=== PATIENT | female | born 1985 | race Caucasian/White ===

== ENCOUNTER 2016-09-06 11:15 | Emergency (ER) | payer OTHER ==
[2016-09-06 11:41] VITALS: BP 108/64; PULSE 74; RESP 20; TEMP 98.1
[2016-09-06] MEDS ORDERED: ORPHENADRINE 30 MG/ML 2 ML VIAL IM STA (13:14)
[2016-09-06] MEDS ORDERED: KETOROLAC 60 MG/2 ML VIAL IM STA (13:14)
--- NOTE | 2016-09-06 13:44 | ED ---
Upper Extremity HPI - General Chief Complaint: Extremity Injury, Upper Stated Complaint: shoulder pain Time Seen by Provider: 09/06/16 13:10 Source: patient, RN notes reviewed Mode of arrival: wheelchair Limitations: physical limitation - History of Present Illness Initial Comments: 31-year-old female presents to the emergency Department chief complaint of right shoulder and left hip pain. Patient was doing partner exercises. Patient states that she did a move and she felt a tear in her right shoulder has since had pain and difficulty with movement of the right shoulder. Patient states she's also had pain to the left hip as well with this. Patient does admit to a history of hours still process. Patient states her pain is moderate this happen last day and has continued. Patient states any movement or touch seems to make it worse. Patient denies any swelling. Patient states resolve head injury or other injury with the incident. Patient states that she stayed constant throbbing type pain. Patient denies any recent fever, chills, shortness of breath, chest pain, back pain, abdominal pain, nausea vomiting, numbness or tingling, dysuria or hematuria, constipation or diarrhea, headaches or visual changes, or any other current symptoms. Place: home - Related Data Home Medications Medication Instructions Recorded Confirmed Milnacipran HCl [Savella] 12.5 mg PO DAILY 06/25/15 06/25/15 Ondansetron Odt [Zofran Odt] 4 mg PO Q8HR PRN 06/25/15 06/25/15 Previous Rx's Medication Instructions Recorded Hydrocodone/Acetaminophen [[place] 1 each PO Q6HR PRN #10 tab 01/05/15 5-325] HYDROcodone/APAP 7.5-325MG [[place] 1 each PO Q8H PRN #6 tab 06/25/15 7.5-325] Promethazine Suppository 25 mg RECTAL QID PRN #10 supp 06/25/15 [Phenergan] Ibuprofen [Motrin] 600 mg PO Q6HR PRN #20 tab 09/06/16 Orphenadrine [Norflex] 100 mg PO Q12H #10 tablet.er 09/06/16 Allergies Allergy/AdvReac Type Severity Reaction Status Date / Time hyoscyamine sulfate Allergy Itching Verified 09/06/16 11:41 [From Levtrevor] Review of Systems ROS Statement: Those systems with pertinent positive or pertinent negative responses have been documented in the HPI. ROS Other: All systems not noted in ROS Statement are negative. Past Medical History Past Medical History: Fibromyalgia Additional Past Medical History / Comment(s): chronic neck pain, migraines, ovarian cyst, osteoprosis,colitis, eating disorder History of Any Multi-Drug Resistant Organisms: None Reported Past Surgical History: Cholecystectomy, Orthopedic Surgery Additional Past Surgical History / Comment(s): d&c, right arm sadie Past Psychological History: Depression Smoking Status: Current every day smoker Past Alcohol Use History: Occasional Past Drug Use History: Marijuana General Exam Limitations: physical limitation General appearance: alert, in no apparent distress Head exam: Present: atraumatic, normocephalic, normal inspection ENT exam: Present: normal exam, mucous membranes moist Neck exam: Present: normal inspection. Absent: tenderness, meningismus, lymphadenopathy Respiratory exam: Present: normal lung sounds bilaterally. Absent: respiratory distress, wheezes, rales, rhonchi, stridor Cardiovascular Exam: Present: regular rate, normal rhythm, normal heart sounds. Absent: systolic murmur, diastolic murmur, rubs, gallop, clicks Right Shoulder Exam: Present: normal inspection, tenderness (Diffuse). Absent: full ROM (Limited in all planes due to pain), swelling, abrasion, laceration, ecchymosis, deformity, crepitus, dislocation, erythema, tenderness over AC joint Upper Arm exam: Present: normal inspection, full ROM. Absent: tenderness, swelling Elbow exam: Present: normal inspection, full ROM. Absent: tenderness, swelling Forearm Wrist exam: Present: normal inspection, full ROM. Absent: tenderness, swelling Neuro motor exam: Present: wrist extension intact, thumb opposition intact, thumb IP flexion intact, thumb adduction intact, fingers 2-5 abduction intact Neurosensory exam: Present: radial nerve intact, ulnar nerve intact, median nerve intact Vascular: Present: normal capillary refill. Absent: vascular compromise Left Hip exam: Present: normal inspection, full ROM, tenderness (Diffuse). Absent: swelling, abrasion, laceration, ecchymosis, deformity, crepitus, dislocation Upper Leg exam: Present: normal inspection, full ROM. Absent: tenderness, swelling Knee exam: Present: normal inspection, full ROM. Absent: tenderness, swelling Lower Leg exam: Present: normal inspection, full ROM. Absent: tenderness, swelling Neurovascular tendon exam: Present: no vascular compromise Back exam: Present: normal inspection, full ROM. Absent: tenderness Neurological exam: Present: alert, oriented X3, CN II-XII intact. Absent: motor sensory deficit Psychiatric exam: Present: normal affect, normal mood Skin exam: Present: warm, dry, intact, normal color. Absent: rash Course Vital Signs 09/06/16 11:37 Temperature 98.1 F Pulse Rate 74 Respiratory 20 Rate Blood Pressure 108/64 O2 Sat by Pulse 100 Oximetry Medical Decision Making - Medical Decision Making 31-year-old female presents for a right shoulder and left hip injury. At this time x-rays are reviewed that did not show any acute fracture. This time we did start the patient on muscle factors for home as well as pain medication. We did discuss follow-up with orthopedic due to the fact this could be a ligament type or tendon or muscular type injury. We discussed return parameters. We discussed ice. The patient stated that she understood and is in agreement with the plan. At this time she will be discharged home. - Radiology Data Radiology results: report reviewed, image reviewed Disposition Clinical Impression: Right shoulder strain, Strain of left hip, Sciatica Disposition: HOME SELF-CARE Condition: Stable Instructions: Rotator Cuff Injury (ED), Sciatica (ED) Additional Instructions: Please use medication as discussed. Please follow up with family doctor if symptoms have not improved over the next two days. Please return to the emergency room if your symptoms increase or worsen or for any other concerns. Prescriptions: Ibuprofen [Motrin] 600 mg PO Q6HR PRN #20 tab PRN Reason: Pain Orphenadrine [Norflex] 100 mg PO Q12H #10 tablet.er Referrals: Chelo Houser MD [Primary Care Provider] - 1-2 days Chaka Rodriguez DO [Doctor of Osteopathic Medicine] - 1-2 days Time of Disposition: 13:51
--- NOTE | 2016-09-06 13:44 | XR ---
EXAMINATION TYPE: XR shoulder complete RT DATE OF EXAM: 09/06/2016 1:32 PM CLINICAL HISTORY: Right shoulder pain after injury yesterday. TECHNIQUE: Three views of the right shoulder are obtained. COMPARISON: Right shoulder x-ray July 17, 2014. FINDINGS: There is no acute fracture/dislocation evident in the right shoulder. There is healed inte rnally fixed fracture of proximal right humeral diaphysis with slight step-off redemonstrated. There is chronic AC joint subluxation. Glenohumeral joint is maintained. Disuse demineralization is suspec nancy and stable. The visualized ribs are intact and unremarkable. IMPRESSION: There is no acute fracture or dislocation in the right shoulder. No significant change f rom prior.
--- NOTE | 2016-09-06 13:47 | XR ---
EXAMINATION TYPE: XR Hip LT and AP Pelvis DATE OF EXAM: 09/06/2016 1:32 PM COMPARISON: CT abdomen pelvis 01 December 2014 HISTORY: Pain and injury TECHNIQUE: A single AP view of the pelvis is obtained. Two views of the left hip are obtained. FINDINGS: There is no acute fracture/dislocation evident in the pelvis. The hip and sacroiliac join ts appear symmetric and unremarkable. The overlying soft tissue appears unremarkable. Two views of left hip show no acute fracture or dislocation. No focal lytic or sclerotic lesion seen in the proximal left femur. The overlying soft tissue is unremarkable. IMPRESSION: There is no acute fracture or dislocation in the pelvis or left hip.
== END 2016-09-06 14:00 | disposition home or self-care (01) ==
LOC: EC 11:15
DX: S46.911A Strain of unspecified muscle, fascia and tendon at shoulder and upper arm level, right arm, initial encounter (principal); S76.012A Strain of muscle, fascia and tendon of left hip, initial encounter; M54.30 Sciatica, unspecified side; X50.9XXA Other and unspecified overexertion or strenuous movements or postures, initial encounter; Y93.B9 Activity, other involving muscle strengthening exercises; M79.7 Fibromyalgia; F32.9 Major depressive disorder, single episode, unspecified; F17.200 Nicotine dependence, unspecified, uncomplicated; Z79.899 Other long term (current) drug therapy; Z88.8 Allergy status to other drugs, medicaments and biological substances
CPT/HCPCS: 99283; 96372 ×2; 73502; 73030; J2360; J1885

== ENCOUNTER 2016-09-08 17:14 | Emergency (ER) | payer OTHER ==
[2016-09-08] MEDS ORDERED: SODIUM CHLORIDE 0.9% 1,000 ML IV STA ×2 (17:39)
[2016-09-08] MEDS ORDERED: ONDANSETRON 4 MG/2 ML VIAL IVP STA (17:39)
[2016-09-08] MEDS ORDERED: PANTOPRAZOLE 40 MG/10 ML VIAL IVP STA (17:39)
[2016-09-08] MEDS ORDERED: RX INFO: IV CONTRAST WAS GIVEN 1 EACH MISC MISCELLANE PRN (17:39)
[2016-09-08] MEDS ORDERED: ACETAMINOPHEN IV (For NPO) 1,000 MG in EMPTY BAG 1 BAG IVPB ONE (17:41)
--- NOTE | 2016-09-08 17:56 | ED ---
Abdominal Pain HPI - General Chief Complaint: Abdominal Pain Stated Complaint: ABD Pain Time Seen by Provider: 09/08/16 17:29 Source: patient, EMS Mode of arrival: EMS Limitations: no limitations - History of Present Illness Initial Comments: This 31-year-old white female presents complaining of some abdominal pain which is described as a cramping. This came on last evening. It is diffuse in nature but somewhat worse on the left side. She also complains of multiple episodes of nausea and vomiting. She thought that she may be constipated last evening and took a laxative. She then started having some rectal bleeding. She further relates that "blood is pouring out of my asshole". She has tried [place] without any significant relief. She is a chronic pain patient for multiple conditions. She states that her fibromyalgia is flared. She complains of pain to her right shoulder as well as her left hip. She apparently was here 2 days ago for these pains. She was going to [facility] this regard but states she is unable to do so as she still was a balance to them. She states that she thinks her ulcerative colitis is flared up as well. She is strongly requesting pain medications. No other complaints or modifying factors. - Related Data Home Medications Medication Instructions Recorded Confirmed ALPRAZolam [Xanax] 0.25 mg PO Q8H PRN 09/08/16 09/08/16 Cholecalciferol [Vitamin D3] 1,000 unit PO DAILY 09/08/16 09/08/16 FLUoxetine HCL [PROzac] 10 mg PO HS 09/08/16 09/08/16 Hydrocodone/Acetaminophen [[place] 1 tab PO Q6H PRN 09/08/16 09/08/16 10-325] Lidocaine 5% Patch [Lidoderm] 1 patch TRANSDERM DAILY 09/08/16 09/08/16 Multivitamin For Bone Health 1 tab PO DAILY 09/08/16 09/08/16 Ondansetron [Zofran ODT] 8 mg PO Q8H PRN 09/08/16 09/08/16 Allergies Allergy/AdvReac Type Severity Reaction Status Date / Time hyoscyamine sulfate Allergy Itching Verified 09/08/16 18:01 [From Levsin] Review of Systems ROS Statement: Those systems with pertinent positive or pertinent negative responses have been documented in the HPI. ROS Other: All systems not noted in ROS Statement are negative. Past Medical History Past Medical History: Fibromyalgia Additional Past Medical History / Comment(s): chronic neck pain, migraines, ovarian cyst, osteoprosis,colitis, eating disorder History of Any Multi-Drug Resistant Organisms: None Reported Past Surgical History: Cholecystectomy, Orthopedic Surgery Additional Past Surgical History / Comment(s): d&c, right arm sadie Past Psychological History: Depression, Panic Disorder Smoking Status: Current every day smoker Past Alcohol Use History: Occasional Past Drug Use History: Marijuana General Exam - General Exam Comments Initial Comments: GENERAL: The patient appears well-hydrated but also appears malnourished. VITAL SIGNS: Heart rate, blood pressure, respiratory rate reviewed as recorded in nurse's notes. EYES: Pupils are round and reactive. Extraocular movements are intact. No conjunctival / lid redness or swelling. ENT: No external evidence of injury, swelling, or ecchymosis. Airway is patent. Throat is clear. NECK: Nontender. No swelling or evidence of injury. No subcutaneous emphysema. Trachea is midline. No thyroid mass. HEART: Regular rate and rhythm. Good peripheral pulses. LUNGS/CHEST: Breath sounds clear and equal bilaterally. No rales, rhonchi, or wheezes. No ecchymosis, subcutaneous emphysema, or tenderness. ABDOMEN: There is some diffuse abdominal tenderness which is much less severe to nonexistent when distracted. No palpable masses or organomegaly. No peritoneal signs. No abdominal wall swelling or ecchymosis. Rectal exam: There is no gross blood identified. There is no evidence of hemorrhoids. There is some mild tenderness upon digital rectal insertion. EXTREMITIES: No extremity tenderness. Normal muscle tone and function. No thoracolumbar tenderness. NEUROLOGIC: Sensation is grossly intact. Cranial nerve exam reveals face is symmetrical, tongue is midline, speech is clear. SKIN: No abrasions or ecchymosis is noted. No induration or masses noted. PSYCHIATRIC: Alert and oriented. Appears somewhat anxious. Limitations: no limitations Course Vital Signs 09/08/16 17:33 Temperature 97.2 F L Pulse Rate 56 L Respiratory 14 Rate Blood Pressure 110/59 O2 Sat by Pulse 100 Oximetry Medical Decision Making - Medical Decision Making The patient was seen and examined. All diagnostics are reviewed. Old records are reviewed. An IV is started and she is hydrated. She received some Ofirmev as well as some Protonix and Zofran intravenously. She is resting quietly and in no distress on recheck. The computed tomography scan came back showing significant fecal stasis. There is also some retained urine noted. She urinates shortly after getting back from the computed tomography scan. There is no other acute processes identified. Her hemoglobin is quite stable. It blood cell count is normal. The Hemoccult is also negative. Overall, the exact cause of her symptoms are not definitively determined. It is certainly felt as though she has significant constipation as per the computed tomography scan. She does request additional pain medications. She is instructed that narcotics should be avoided as this may be causing constipation issues. It is felt as though Toradol or other NSAIDs should be avoided due to this possible bleeding episode. While she does state that she had rectal bleeding it is odd that her Hemoccult is negative. The possibility of alternative motives/ narcotic seeking is certainly possible. She is given a bottle of magnesium citrate to take when she gets home. It is felt as though she is stable for discharge and leaves in no distress. - Lab Data Result diagrams: 09/08/16 17:45 09/08/16 17:45 Lab Results 09/08/16 09/08/16 09/08/16 Range/Units 17:45 17:45 17:45 WBC 7.5 (3.8-10.6) k/uL RBC 3.81 (3.80-5.40) m/uL Hgb 12.0 (11.4-16.0) gm/dL Hct 36.3 (34.0-46.0) % MCV 95.2 (80.0-100.0) fL MCH 31.4 (25.0-35.0) pg MCHC 33.0 (31.0-37.0) g/dL RDW 13.2 (11.5-15.5) % Plt Count 359 (150-450) k/uL Neutrophils % 64 % Lymphocytes % 26 % Monocytes % 6 % Eosinophils % 3 % Basophils % 0 % Neutrophils # 4.8 (1.3-7.7) k/uL Lymphocytes # 2.0 (1.0-4.8) k/uL Monocytes # 0.4 (0-1.0) k/uL Eosinophils # 0.2 (0-0.7) k/uL Basophils # 0.0 (0-0.2) k/uL PT 11.5 (9.0-12.0) sec INR 1.2 (<1.1) APTT 25.8 (22.0-30.0) sec Sodium 142 (137-145) mmol/L Potassium 3.6 (3.5-5.1) mmol/L Chloride 108 H (98-107) mmol/L Carbon Dioxide 24 (22-30) mmol/L Anion Gap 10 mmol/L BUN 6 L (7-17) mg/dL Creatinine 0.54 (0.52-1.04) mg/dL Est GFR (MDRD) Af Amer >60 (>60 ml/min/1.73 sqM) Est GFR (MDRD) Non-Af >60 (>60 ml/min/1.73 sqM) Glucose 98 (74-99) mg/dL Calcium 9.2 (8.4-10.2) mg/dL Total Bilirubin 0.6 (0.2-1.3) mg/dL AST 23 (14-36) U/L ALT 33 (9-52) U/L Alkaline Phosphatase 75 (38-126) U/L Total Protein 7.1 (6.3-8.2) g/dL Albumin 4.2 (3.5-5.0) g/dL Amylase 68 (30-110) U/L Lipase 56 (23-300) U/L HCG, Qual Not Detected Stool Occult Blood (Negative) 09/08/16 Range/Units 17:45 WBC (3.8-10.6) k/uL RBC (3.80-5.40) m/uL Hgb (11.4-16.0) gm/dL Hct (34.0-46.0) % MCV (80.0-100.0) fL MCH (25.0-35.0) pg MCHC (31.0-37.0) g/dL RDW (11.5-15.5) % Plt Count (150-450) k/uL Neutrophils % % Lymphocytes % % Monocytes % % Eosinophils % % Basophils % % Neutrophils # (1.3-7.7) k/uL Lymphocytes # (1.0-4.8) k/uL Monocytes # (0-1.0) k/uL Eosinophils # (0-0.7) k/uL Basophils # (0-0.2) k/uL PT (9.0-12.0) sec INR (<1.1) APTT (22.0-30.0) sec Sodium (137-145) mmol/L Potassium (3.5-5.1) mmol/L Chloride (98-107) mmol/L Carbon Dioxide (22-30) mmol/L Anion Gap mmol/L BUN (7-17) mg/dL Creatinine (0.52-1.04) mg/dL Est GFR (MDRD) Af Amer (>60 ml/min/1.73 sqM) Est GFR (MDRD) Non-Af (>60 ml/min/1.73 sqM) Glucose (74-99) mg/dL Calcium (8.4-10.2) mg/dL Total Bilirubin (0.2-1.3) mg/dL AST (14-36) U/L ALT (9-52) U/L Alkaline Phosphatase (38-126) U/L Total Protein (6.3-8.2) g/dL Albumin (3.5-5.0) g/dL Amylase (30-110) U/L Lipase (23-300) U/L HCG, Qual Stool Occult Blood Negative (Negative) Disposition Clinical Impression: Abdominal pain, Constipation, Fibromyalgia, Rectal bleed Disposition: HOME SELF-CARE Condition: Good Instructions: Abdominal Pain (ED), Rectal Bleeding (ED), Constipation (ED) Additional Instructions: Please use MiraLAX daily to help with her constipation. Please avoid further narcotics as this likely is causing her constipation. Referrals: Chelo Houser MD [Primary Care Provider] - 1-2 days Time of Disposition: 20:25
[2016-09-08 18:03] LABS: Basophils % (A) 0 %; CH 31.9; CHCM 33.6; Eosinophils # (A) 0.2 k/uL (0-0.7); Eosinophils % (A) 3 %; HCT 36.3 % (34.0-46.0); HDW 2.22; Luc # (Auto) 0.11; Luc % (Auto) 1; Lymphocytes % (A) 26 %; MCH 31.4 pg (25.0-35.0); MCV 95.2 fL (80.0-100.0); Mean Platelet Volume 7.3; Monocytes # (A) 0.4 k/uL (0-1.0); Monocytes % (A) 6 %; Neutrophils # (A) 4.8 k/uL (1.3-7.7); Neutrophils % (A) 64 %; RBC 3.81 m/uL (3.80-5.40); RDW 13.2 % (11.5-15.5); WBC 7.5 k/uL (3.8-10.6); WBC (Perox) 7.96
[2016-09-08 18:12] LABS: INR 1.2 (<1.1); Partial Thromboplastin Time 25.8 sec (22.0-30.0); Prothrombin Time 11.5 sec (9.0-12.0)
[2016-09-08 18:16] LABS: ALT 33 U/L (9-52); AST 23 U/L (14-36); Alkaline Phosphatase 75 U/L (38-126); Amylase 68 U/L (30-110); Anion Gap 10 mmol/L; Blood Urea Nitrogen 6 mg/dL (7-17); Calcium 9.2 mg/dL (8.4-10.2); Carbon Dioxide 24 mmol/L (22-30); Chloride 108 mmol/L (98-107); Glucose 98 mg/dL (74-99); Non-African American GFR(MDRD) >60 (>60 ml/min/1.73 sqM); Potassium 3.6 mmol/L (3.5-5.1); Sodium 142 mmol/L (137-145); Total Bilirubin 0.6 mg/dL (0.2-1.3); Total Protein 7.1 g/dL (6.3-8.2)
[2016-09-08 18:30] LABS: HCG,Qualitative Serum Not Detected
--- NOTE | 2016-09-08 19:20 | CT ---
EXAMINATION TYPE: CT abdomen pelvis w con DATE OF EXAM: 09/08/2016 6:56 PM COMPARISON: Prior CT abdomen pelvis November 2014 HISTORY: Pt states of severe abdominal pain with vomiting and blood in stool. CT DLP: 327.9 mGycm Automated exposure control for dose reduction was used. TECHNIQUE: Helical acquisition of images from the lung bases through the pelvis have been completed. CONTRAST: Performed without Oral Contrast and with IV Contrast, patient injected with 100 mL of Omnipaque 300. FINDINGS: LUNG BASES: No significant abnormality is appreciated. AORTA: No significant abnormality is appreciated. LIVER/GB: Patient is status post cholecystectomy. Liver shows low attenuation but no mass. There may be underlying fatty infiltration, hepatocellular disease. PANCREAS: No significant abnormality is seen. SPLEEN: No significant abnormality is seen. ADRENALS: No significant abnormality is seen. KIDNEYS: No significant abnormality is seen. REPRODUCTIVE ORGANS: No significant abnormality is seen BOWEL: There is large amount of fecal debris in the rectosigmoid colon, correlate for possible fecal impaction. FREE AIR: No Free Air visible ASCITES: None visible. PELVIC ADENOPATHY: None visualized. RETROPERITONEAL ADENOPATHY: No Retroperitoneal Adenopathy visible. URINARY BLADDER: Large amount of retained urine within the bladder. OSSEOUS STRUCTURES: There is a spinal curvature. IMPRESSION: CORRELATE TO EXCLUDE FECAL STASIS. LARGE AMOUNT OF RETAINED URINE WITHIN THE URINARY BLADDER, CORRELA TE TO EXCLUDE URINARY RETENTION.
[2016-09-08] MEDS ORDERED: MAGNESIUM CITRATE 296 ML BOTTLE PO ONE (20:20)
[2016-09-08 20:43] VITALS: BP 99/53; PULSE 88; RESP 16; TEMP 97.9
== END 2016-09-08 20:43 | disposition home or self-care (01) ==
LOC: EC 17:14
DX: K59.00 Constipation, unspecified (principal); M79.7 Fibromyalgia; K62.5 Hemorrhage of anus and rectum; E46 Unspecified protein-calorie malnutrition; M81.0 Age-related osteoporosis without current pathological fracture; F32.9 Major depressive disorder, single episode, unspecified; F41.0 Panic disorder [episodic paroxysmal anxiety]; F17.200 Nicotine dependence, unspecified, uncomplicated; Z68.1 Body mass index [BMI] 19.9 or less, adult; Z79.899 Other long term (current) drug therapy
CPT/HCPCS: 99285; 96374; 96375; 96361 ×2; 36415; 80053; 82150; 83690; 85025; 85610; 85730; 82272; 84703; 74177; J2405; Q9967; J0131; C9113

== ENCOUNTER → 2016-10-21 | Outpatient (CLI) | payer OTHER ==
--- NOTE | 2016-10-21 15:14 | MR ---
EXAMINATION TYPE: MR shoulder RT wo con DATE OF EXAM: 10/21/2016 2:27 PM COMPARISON: Right shoulder x-ray September 06, 2016. HISTORY: Adhesive capsulitis rt shoulder, Pain TECHNIQUE: Multiplanar, multisequence imaging of the right shoulder is performed without contrast. FINDINGS: Exam is noted suboptimal due to extensive artifact from fixating rods related to remote pro ximal humeral fracture. Rotator Cuff: Distal rotator cuff is suboptimally assessed. Rotator cuff tendons up to the acromiocla vicular joint are unremarkable. Rotator cuff muscle bulk is preserved. Subscapularis tendon is intact . Acromioclavicular Joint: Artifact at level of acromion makes evaluation suboptimal. There appears to be elevation of distal clavicle inferior margin relative to inferior margin of the acromion suggestin g chronic subluxation or separation. Glenohumeral Joint: No significant spurring or joint effusion is seen. Artifact degradation is noted. Labrum: Superior labrum likely intact though artifact degradation is noted. Biceps Tendon: The long head of biceps is in normal location within bicipital groove. Bicipital groov e is deviated laterally may be product of external rotation or prior trauma. Bone marrow signal: Artifact degradation proximal humerus is seen, other structures unremarkable. Other: There is suboptimal evaluation of the inferior glenohumeral ligament, axillary recess, and rot ator cuff interval due to artifact. IMPRESSION: Suboptimal study due to artifact degradation to assess MRI findings suggesting adhesive c apsulitis.
== END | disposition home or self-care (01) ==
LOC: RADMRIMAIN 13:38
PROVIDERS: ATTEND Family Medicine
DX: M75.01 Adhesive capsulitis of right shoulder (principal)

== ENCOUNTER → 2017-05-13 | Outpatient (CLI) | payer OTHER ==
--- NOTE | 2017-05-16 07:27 | BD ---
EXAMINATION TYPE: MG DEXA axial skeleton. DATE OF EXAM: 05/13/2017 COMPARISON: NONE CLINICAL HISTORY: 31-year-old female osteoporosis : no taking control Height: 63.5 Weight: 125.7 FRAX RISK QUESTIONS: Alcohol (3 or more units per day): no Family History (Parent hip fracture): no Glucocorticoids (More than 3mos): no (Ex: prednisone, prednisolone, methylprednisolone, dexamethasone, and hydrocortisone). History of Fracture in Adulthood: yes Secondary Osteoporosis: 1. Type 1 Diabetes: no 2. Hyperthyroidism: no 3. Menopause before 45: n/a pt is only 31 4. Malnutrition: yes 5. Chronic liver disease: no Rheumatoid Arthritis: no Current Tobacco Use: yes RISK FACTORS HISTORY OF: Hip Fracture (Right/Left): no Spine Fracture: no History of Wrist Fracture: left wrist When: 2012 Surgery to Spine/Hip(right/left)/Wrist (right/left): no Family History of Osteoporosis: yes Active: yes Diet low in dairy products/other sources of calcium: yes If Premenopausal, do you have irregular periods: no Lost more than 2 inches in height since high school: no Frequent falls: no Poor Health: yes Hyperparathyroidism: no Adrenal Insufficiency: no MEDICATIONS: Zofran, ibuprofen, Prilosec, viosterol, xanax, norco, Zyprexa Additional History: EXAM MEASUREMENTS: Bone mineral densitometry was performed using the [employer] System. Bone mineral density as measured about the Lumbar spine is: ----- L1-L4(G/cm2): 0.917 T Score Values are as follows: ----- L2: -2.4 ----- L3: -1.9 ----- L4: -2.6 ----- L1-L4: -2.2 Bone mineral density baseline here Bone mineral density about the R hip (g/cm2): 0.822 Bone mineral density about the L hip (g/cm2): 0.780 T Score values are as follows: -----R Neck: -1.6 -----L Neck: -1.9 -----R Total: -1.5 -----L Total: -1.8 Bone mineral density baseline here IMPRESSION: Premenopausal female with decreased bone mineral density; average Z score value in the lumbar spine l ess than -2.0. NOTE: T-SCORE=SD OF THE YOUNG ADULT MEAN.
== END | disposition home or self-care (01) ==
LOC: RADBDWWP 12:28
PROVIDERS: ATTEND Family Medicine
DX: M85.88 Other specified disorders of bone density and structure, other site (principal)
CPT/HCPCS: 77080

== ENCOUNTER → 2017-09-22 | Outpatient (CLI) | payer OTHER ==
--- NOTE | 2017-09-22 10:26 | US ---
EXAMINATION TYPE: US abdomen complete DATE OF EXAM: 09/22/2017 COMPARISON: CT CLINICAL HISTORY: R74.8 Elevated liver Enzymes. EXAM MEASUREMENTS: Liver Length: 14.7 cm Gallbladder Wall: Surgically absent cm CBD: 0.4 cm Spleen: 6.0 cm Right Kidney: 9.8 X 4.1 X 4.4 cm Left Kidney: 9.4 x 4.0 x 4.2 cm Pancreas: wnl Liver: fatty liver Gallbladder: Surgically absent Evidence for sonographic Jaeger's sign: No CBD: wnl Spleen: wnl , somewhat limited due to overlying ribs. Right Kidney: No hydronephrosis or masses seen Left Kidney: No hydronephrosis or masses seen Upper IVC: wnl Abd Aorta: wnl IMPRESSION: 1. Visualized abdomen ultrasound is unremarkable.
== END | disposition home or self-care (01) ==
LOC: RADUSWWP 08:56
PROVIDERS: ATTEND Family Medicine
DX: R74.8 Abnormal levels of other serum enzymes (principal)
CPT/HCPCS: 76700

== ENCOUNTER 2017-12-28 11:12 | Emergency (ER) | payer OTHER ==
[2017-12-28 11:54] VITALS: TEMP 98.1
[2017-12-28] MEDS ORDERED: ONDANSETRON 4 MG/2 ML VIAL IVP STA ×2 (12:18→14:44)
[2017-12-28] MEDS ORDERED: SODIUM CHLORIDE 0.9% 1,000 ML IV STA (12:18)
[2017-12-28] MEDS ORDERED: SODIUM CHLORIDE 0.9% 2,000 ML IV STA (12:18)
[2017-12-28] MEDS ORDERED: PANTOPRAZOLE 40 MG/10 ML VIAL IVP STA (12:20)
--- NOTE | 2017-12-28 12:23 | ED ---
Nausea/Vomiting/Diarrhea HPI - General Chief complaint: Nausea/Vomiting/Diarrhea Stated complaint: Vomiting Blood Time Seen by Provider: 12/28/17 12:11 Source: patient, RN notes reviewed Mode of arrival: ambulatory Limitations: no limitations - History of Present Illness Initial comments: This a 32-year-old female presents emergency Department chief complaint of nausea vomiting. Patient states she's been vomiting over the last 9 days. Patient states this started after being started on new medication. She states she was started on Carafate by Dr. Mcgarry. Patient states that she's had problems with gastritis and hematemesis in the past. Patient states that she's been vomiting mostly bile glass 8 days but today she had several small amount of bright red blood. Patient states she has some epigastric discomfort. Denies chest pain or shortness breath. She states that she has had no recent bowel movement denies any diarrhea, dysuria or hematuria. Patient had prior cholecystectomy and EGD in the past. Patient states her symptoms are consistent with her gastritis in the past. - Related Data Home Medications Medication Instructions Recorded Confirmed Hydrocodone/Acetaminophen [[place] 1 tab PO Q6H PRN 09/08/16 12/28/17 10-325] ALPRAZolam [Xanax] 0.5 mg PO DAILY PRN 12/28/17 12/28/17 Desvenlafaxine [Pristiq ER] 100 mg PO HS 12/28/17 12/28/17 Ibuprofen [Motrin] 800 mg PO TID PRN 12/28/17 12/28/17 Omeprazole [PriLOSEC] 20 mg PO BID 12/28/17 12/28/17 Pantoprazole Sodium 40 mg PO DAILY 12/28/17 12/28/17 cloNIDine HCL [Catapres] 0.1 - 0.2 mg PO DAILY PRN 12/28/17 12/28/17 Previous Rx's Medication Instructions Recorded Ciprofloxacin HCl [Cipro] 500 mg PO Q12HR #10 tablet 12/28/17 Ondansetron Odt [Zofran Odt] 4 mg PO Q8HR PRN #14 tab 12/28/17 Allergies Allergy/AdvReac Type Severity Reaction Status Date / Time hyoscyamine sulfate AdvReac Itching Verified 12/28/17 12:31 [From Levsin] latex AdvReac Itching Verified 12/28/17 12:31 Review of Systems ROS Statement: Those systems with pertinent positive or pertinent negative responses have been documented in the HPI. ROS Other: All systems not noted in ROS Statement are negative. Past Medical History Past Medical History: Fibromyalgia Additional Past Medical History / Comment(s): chronic neck pain, migraines, ovarian cyst, osteoprosis,colitis, eating disorder, endometriosis History of Any Multi-Drug Resistant Organisms: None Reported Past Surgical History: Cholecystectomy, Orthopedic Surgery Additional Past Surgical History / Comment(s): d&c, right arm sadie Past Psychological History: Depression, Panic Disorder Smoking Status: Current every day smoker Past Alcohol Use History: Occasional Past Drug Use History: Marijuana General Exam Limitations: no limitations General appearance: alert, in no apparent distress Head exam: Present: atraumatic, normocephalic, normal inspection Eye exam: Present: normal appearance, PERRL, EOMI. Absent: scleral icterus, conjunctival injection, periorbital swelling ENT exam: Present: normal exam, normal oropharynx, mucous membranes moist Neck exam: Present: normal inspection, full ROM. Absent: tenderness, meningismus, lymphadenopathy Respiratory exam: Present: normal lung sounds bilaterally. Absent: respiratory distress, wheezes, rales, rhonchi, stridor Cardiovascular Exam: Present: regular rate, normal rhythm, normal heart sounds. Absent: systolic murmur, diastolic murmur, rubs, gallop, clicks GI/Abdominal exam: Present: soft, tenderness (Epigastric discomfort moderate), normal bowel sounds. Absent: distended, guarding, rebound, rigid Back exam: Absent: CVA tenderness (R), CVA tenderness (L) Skin exam: Present: warm, dry, intact, normal color. Absent: rash Course Vital Signs 12/28/17 12/28/17 11:51 12:22 Temperature 98.1 F Pulse Rate 77 75 Respiratory 18 19 Rate Blood Pressure 101/63 92/53 O2 Sat by Pulse 100 100 Oximetry Medical Decision Making - Medical Decision Making 32-year-old female presented to the ER for nausea vomiting reported for last 9 days. She did have some bright red blood today. Patient has known gastritis and has had issues like this in the past. Patient was hydrated with several liters of fluids. Patient lab work does reveal urinary tract infection otherwise within normal limits. Patient had 1+ ketones dehydration. - Lab Data Result diagrams: 12/28/17 12:48 05/02/18 12:48 Lab Results 12/28/17 12/28/17 12/28/17 Range/Units 12:48 12:48 12:48 WBC 7.8 (3.8-10.6) k/uL RBC 3.92 (3.80-5.40) m/uL Hgb 12.2 (11.4-16.0) gm/dL Hct 36.3 (34.0-46.0) % MCV 92.7 (80.0-100.0) fL MCH 31.1 (25.0-35.0) pg MCHC 33.6 (31.0-37.0) g/dL RDW 13.5 (11.5-15.5) % Plt Count 354 (150-450) k/uL Neutrophils % 58 % Lymphocytes % 36 % Monocytes % 3 % Eosinophils % 2 % Basophils % 0 % Neutrophils # 4.5 (1.3-7.7) k/uL Lymphocytes # 2.8 (1.0-4.8) k/uL Monocytes # 0.2 (0-1.0) k/uL Eosinophils # 0.2 (0-0.7) k/uL Basophils # 0.0 (0-0.2) k/uL Sodium 147 H (137-145) mmol/L Potassium 4.8 (3.5-5.1) mmol/L Chloride 103 (98-107) mmol/L Carbon Dioxide 28 (22-30) mmol/L Anion Gap 16 mmol/L BUN 17 (7-17) mg/dL Creatinine 0.60 (0.52-1.04) mg/dL Est GFR (CKD-EPI)AfAm >90 (>60 ml/min/1.73 sqM) Est GFR (CKD-EPI)NonAf >90 (>60 ml/min/1.73 sqM) Glucose 79 (74-99) mg/dL Calcium 9.7 (8.4-10.2) mg/dL Total Bilirubin 0.4 (0.2-1.3) mg/dL AST 50 H (14-36) U/L ALT 72 H (9-52) U/L Alkaline Phosphatase 79 (38-126) U/L Total Protein 7.8 (6.3-8.2) g/dL Albumin 4.7 (3.5-5.0) g/dL Amylase 104 (30-110) U/L Lipase 110 (23-300) U/L Urine Color Dark Yellow Urine Appearance Cloudy H (Clear) Urine pH 6.5 (5.0-8.0) Ur Specific [place] 1.028 (1.001-1.035) Urine Protein 2+ H (Negative) Urine Glucose (UA) Negative (Negative) Urine Ketones 1+ H (Negative) Urine Blood Negative (Negative) Urine Nitrite Negative (Negative) Urine Bilirubin Negative (Negative) Urine Urobilinogen 3.0 (<2.0) mg/dL Ur Leukocyte Esterase Large H (Negative) Urine WBC 166 H (0-5) /hpf Ur Squamous Epith Cells 23 H (0-4) /hpf Urine Bacteria Occasional H (None) /hpf Urine Mucus Many H (None) /hpf Urine HCG, Qual (Not Detectd) 12/28/17 Range/Units 12:48 WBC (3.8-10.6) k/uL RBC (3.80-5.40) m/uL Hgb (11.4-16.0) gm/dL Hct (34.0-46.0) % MCV (80.0-100.0) fL MCH (25.0-35.0) pg MCHC (31.0-37.0) g/dL RDW (11.5-15.5) % Plt Count (150-450) k/uL Neutrophils % % Lymphocytes % % Monocytes % % Eosinophils % % Basophils % % Neutrophils # (1.3-7.7) k/uL Lymphocytes # (1.0-4.8) k/uL Monocytes # (0-1.0) k/uL Eosinophils # (0-0.7) k/uL Basophils # (0-0.2) k/uL Sodium (137-145) mmol/L Potassium (3.5-5.1) mmol/L Chloride (98-107) mmol/L Carbon Dioxide (22-30) mmol/L Anion Gap mmol/L BUN (7-17) mg/dL Creatinine (0.52-1.04) mg/dL Est GFR (CKD-EPI)AfAm (>60 ml/min/1.73 sqM) Est GFR (CKD-EPI)NonAf (>60 ml/min/1.73 sqM) Glucose (74-99) mg/dL Calcium (8.4-10.2) mg/dL Total Bilirubin (0.2-1.3) mg/dL AST (14-36) U/L ALT (9-52) U/L Alkaline Phosphatase (38-126) U/L Total Protein (6.3-8.2) g/dL Albumin (3.5-5.0) g/dL Amylase (30-110) U/L Lipase (23-300) U/L Urine Color Urine Appearance (Clear) Urine pH (5.0-8.0) Ur Specific [place] (1.001-1.035) Urine Protein (Negative) Urine Glucose (UA) (Negative) Urine Ketones (Negative) Urine Blood (Negative) Urine Nitrite (Negative) Urine Bilirubin (Negative) Urine Urobilinogen (<2.0) mg/dL Ur Leukocyte Esterase (Negative) Urine WBC (0-5) /hpf Ur Squamous Epith Cells (0-4) /hpf Urine Bacteria (None) /hpf Urine Mucus (None) /hpf Urine HCG, Qual Not Detected (Not Detectd) Disposition Clinical Impression: Nausea & vomiting, Gastritis, UTI (urinary tract infection) Disposition: HOME SELF-CARE Condition: Stable Instructions: Acute Nausea and Vomiting (ED) Additional Instructions: Please return to the Emergency Department if symptoms worsen or any other concerns. Prescriptions: Ciprofloxacin HCl [Cipro] 500 mg PO Q12HR #10 tablet Ondansetron Odt [Zofran Odt] 4 mg PO Q8HR PRN #14 tab PRN Reason: Nausea Is patient prescribed a controlled substance at d/c from ED?: No Referrals: Chelo Houser MD [Primary Care Provider] - 1-2 days Susan Stroud MD [STAFF PHYSICIAN] - 1-2 days Time of Disposition: 14:52
[2017-12-28 13:08] LABS: Basophils % (A) 0 %; Eosinophils # (A) 0.2 k/uL (0-0.7); Eosinophils % (A) 2 %; HCT 36.3 % (34.0-46.0); HGB 12.2 gm/dL (11.4-16.0); Lymphocytes # (A) 2.8 k/uL (1.0-4.8); Lymphocytes % (A) 36 %; MCH 31.1 pg (25.0-35.0); MCHC 33.6 g/dL (31.0-37.0); MCV 92.7 fL (80.0-100.0); Mean Platelet Volume 7.4; Monocytes # (A) 0.2 k/uL (0-1.0); Monocytes % (A) 3 %; Neutrophils # (A) 4.5 k/uL (1.3-7.7); Neutrophils % (A) 58 %; Platelet Count 354 k/uL (150-450); RBC 3.92 m/uL (3.80-5.40); RDW 13.5 % (11.5-15.5); WBC 7.8 k/uL (3.8-10.6)
--- NOTE | 2017-12-28 13:08 | XR ---
EXAMINATION TYPE: XR KUB DATE OF EXAM: 12/28/2017 COMPARISON: NONE HISTORY: Pain TECHNIQUE: Single supine KUB image of the abdomen is obtained FINDINGS: Small bowel demonstrates no evidence for dilatation or air fluid levels. Gas and fecal material is seen in non-distended colon. No convincing evidence for pneumoperitoneum. No unusual calcifications. The lung bases are clear. The osseous structures are intact. IMPRESSION: 1. Overall nonobstructive bowel gas pattern.
[2017-12-28 13:15] LABS: ALT 72 U/L (9-52); AST 50 U/L (14-36); Albumin 4.7 g/dL (3.5-5.0); Alkaline Phosphatase 79 U/L (38-126); Amylase 104 U/L (30-110); Anion Gap 16 mmol/L; Blood Urea Nitrogen 17 mg/dL (7-17); Calcium 9.7 mg/dL (8.4-10.2); Carbon Dioxide 28 mmol/L (22-30); Chloride 103 mmol/L (98-107); Glucose 79 mg/dL (74-99); Lipase 110 U/L (23-300); Potassium 4.8 mmol/L (3.5-5.1); Sodium 147 mmol/L (137-145); Total Bilirubin 0.4 mg/dL (0.2-1.3); Total Protein 7.8 g/dL (6.3-8.2)
[2017-12-28 13:21] LABS: Appearance,Urine Cloudy (Clear); Bacteria,Urine Occasional /hpf; Bilirubin,Urine Negative (Negative); Blood,Urine Negative (Negative); Color,Urine Dark Yellow; Glucose,Urine (UA) Negative (Negative); Ketones,Urine 1+ (Negative); Leukocyte Esterase,Urine Large (Negative); Mucus,Urine Many /hpf; Nitrite,Urine Negative (Negative); PH, Urine 6.5 (5.0-8.0); Protein,Urine 2+ (Negative); Specific Gravity,Urine 1.028 (1.001-1.035); Squamous Epithelial Cell,Urine 23 /hpf (0-4); WBC,Urine 166 /hpf (0-5)
[2017-12-28] MEDS ORDERED: MORPHINE SULFATE 4 MG/ML SYRINGE IVP STA (14:44)
[2017-12-28] MEDS ORDERED: cefTRIAXone IN SWFI 1,000 MG/10 ML SYRINGE IVP STA (14:49)
[2017-12-28 14:55] VITALS: BP 94/55; PULSE 97; RESP 16
== END 2017-12-28 15:33 | disposition home or self-care (01) ==
LOC: EC 11:12
DX: K29.70 Gastritis, unspecified, without bleeding (principal); N39.0 Urinary tract infection, site not specified; F32.9 Major depressive disorder, single episode, unspecified; F41.0 Panic disorder [episodic paroxysmal anxiety]; F17.200 Nicotine dependence, unspecified, uncomplicated; Z79.899 Other long term (current) drug therapy; Z91.040 Latex allergy status; Z88.8 Allergy status to other drugs, medicaments and biological substances; Z90.49 Acquired absence of other specified parts of digestive tract
CPT/HCPCS: 36415; 80053; 82150; 83690; 85025; 81001; 81025; 74018; 99284; 96374; 96375 ×3; 96376; 96361 ×3; J2270; J2405; J0696; C9113

== ENCOUNTER 2017-12-29 05:08 | Inpatient (IN) | payer OTHER ==
[2017-12-29] MEDS ORDERED: SODIUM CHLORIDE 0.9% 500 ML IV STA (05:35)
[2017-12-29] MEDS ORDERED: PANTOPRAZOLE 40 MG/10 ML VIAL IVP STA (05:35)
[2017-12-29] MEDS ORDERED: METOCLOPRAMIDE 5 MG/ML 2 ML VIAL IVP STA (05:35)
[2017-12-29] MEDS ORDERED: SODIUM CHLORIDE 0.9% 1,000 ML IV STA (05:35)
--- NOTE | 2017-12-29 05:38 | ED ---
General Adult HPI - General Chief complaint: GI Bleed Stated complaint: Vomiting blood Time Seen by Provider: 12/29/17 05:24 Source: patient, RN notes reviewed Mode of arrival: wheelchair Limitations: no limitations - History of Present Illness Initial comments: Patient is a pleasant 32-year-old female presenting to the emergency Department with complaints of vomiting. Symptoms have been occurring for the past 9 days. Patient has been vomiting some blood over the past couple of days. Patient was seen in the emergency department yesterday and advised to return if symptoms worsen. Patient feels symptoms are continued or worsened. Patient does have a history of similar symptoms just once previously less than a year ago when she was diagnosed with gastroenteritis. Otherwise is not a chronic problem for the patient. Patient still feels nauseated and fatigued. Does have epigastric discomfort. - Related Data Home Medications Medication Instructions Recorded Confirmed Hydrocodone/Acetaminophen [[place] 1 tab PO Q6H PRN 09/08/16 12/28/17 10-325] ALPRAZolam [Xanax] 0.5 mg PO DAILY PRN 12/28/17 12/28/17 Desvenlafaxine [Pristiq ER] 100 mg PO HS 12/28/17 12/28/17 Ibuprofen [Motrin] 800 mg PO TID PRN 12/28/17 12/28/17 Omeprazole [PriLOSEC] 20 mg PO BID 12/28/17 12/28/17 Pantoprazole Sodium 40 mg PO DAILY 12/28/17 12/28/17 cloNIDine HCL [Catapres] 0.1 - 0.2 mg PO DAILY PRN 12/28/17 12/28/17 Previous Rx's Medication Instructions Recorded Ciprofloxacin HCl [Cipro] 500 mg PO Q12HR #10 tablet 12/28/17 Ondansetron Odt [Zofran Odt] 4 mg PO Q8HR PRN #14 tab 12/28/17 Allergies Allergy/AdvReac Type Severity Reaction Status Date / Time hyoscyamine sulfate AdvReac Itching Verified 12/29/17 05:25 [From Levsin] latex AdvReac Itching Verified 12/29/17 05:25 Review of Systems ROS Statement: Those systems with pertinent positive or pertinent negative responses have been documented in the HPI. ROS Other: All systems not noted in ROS Statement are negative. Constitutional: Denies: fever Eyes: Denies: eye pain ENT: Denies: ear pain Respiratory: Denies: cough Cardiovascular: Denies: chest pain Endocrine: Reports: fatigue Gastrointestinal: Reports: abdominal pain, nausea, vomiting, hematemesis Genitourinary: Denies: dysuria Musculoskeletal: Denies: back pain Skin: Denies: rash Neurological: Denies: headache Past Medical History Past Medical History: Fibromyalgia, Renal Disease Additional Past Medical History / Comment(s): chronic neck pain, migraines, ovarian cyst, osteoprosis,colitis, eating disorder, endometriosis History of Any Multi-Drug Resistant Organisms: None Reported Past Surgical History: Cholecystectomy, Orthopedic Surgery Additional Past Surgical History / Comment(s): d&c, right arm sadie Past Psychological History: Depression, Panic Disorder Smoking Status: Current every day smoker Past Alcohol Use History: Occasional Past Drug Use History: Marijuana General Exam Limitations: no limitations General appearance: alert, in no apparent distress Head exam: Present: atraumatic Eye exam: Present: normal appearance, PERRL ENT exam: Present: normal oropharynx Neck exam: Present: normal inspection Respiratory exam: Present: normal lung sounds bilaterally Cardiovascular Exam: Present: regular rate, normal rhythm Expanded Peripheral pulses: 2+: Dorsalis Pedis (R), Dorsalis Pedis (L) GI/Abdominal exam: Present: soft, tenderness (Mild to moderate epigastric tenderness), normal bowel sounds. Absent: distended, guarding (Mild guarding in the epigastric region), rebound, rigid, pulsatile mass Extremities exam: Present: normal inspection Neurological exam: Present: alert Psychiatric exam: Present: normal affect, normal mood Skin exam: Present: normal color Course Vital Signs 12/29/17 12/29/17 12/29/17 05:14 05:24 06:39 Temperature 98 F 98.5 F 97.4 F L Pulse Rate 52 L 68 83 Respiratory 17 16 14 Rate Blood Pressure 145/78 136/76 101/57 O2 Sat by Pulse 98 98 100 Oximetry Medical Decision Making - Medical Decision Making Patient reevaluated and resting comfortably in bed. Patient does feel somewhat better. Patient requests more education for her abdominal discomfort. Patient will be given a single dose at this time. Further evaluation will be needed if patient has continued discomfort or worsening symptoms. Patient updated on results and plan. Case was discussed in detail with Dr. bird, who will admit for Dr. Roberts. GI will be placed on consult. - Lab Data Result diagrams: 12/29/17 05:40 12/29/17 05:40 Lab Results 12/29/17 12/29/17 12/29/17 Range/Units 05:40 05:40 05:40 WBC 7.1 (3.8-10.6) k/uL RBC 3.67 L (3.80-5.40) m/uL Hgb 11.6 (11.4-16.0) gm/dL Hct 33.5 L (34.0-46.0) % MCV 91.4 (80.0-100.0) fL MCH 31.5 (25.0-35.0) pg MCHC 34.5 (31.0-37.0) g/dL RDW 13.6 (11.5-15.5) % Plt Count 370 (150-450) k/uL Neutrophils % 63 % Lymphocytes % 32 % Monocytes % 2 % Eosinophils % 1 % Basophils % 0 % Neutrophils # 4.5 (1.3-7.7) k/uL Lymphocytes # 2.2 (1.0-4.8) k/uL Monocytes # 0.2 (0-1.0) k/uL Eosinophils # 0.1 (0-0.7) k/uL Basophils # 0.0 (0-0.2) k/uL PT 11.3 (9.0-12.0) sec INR 1.2 H (<1.2) APTT 23.8 (22.0-30.0) sec Sodium 142 (137-145) mmol/L Potassium 5.1 (3.5-5.1) mmol/L Chloride 106 (98-107) mmol/L Carbon Dioxide 21 L (22-30) mmol/L Anion Gap 15 mmol/L BUN 10 (7-17) mg/dL Creatinine 0.53 (0.52-1.04) mg/dL Est GFR (CKD-EPI)AfAm >90 (>60 ml/min/1.73 sqM) Est GFR (CKD-EPI)NonAf >90 (>60 ml/min/1.73 sqM) Glucose 113 H (74-99) mg/dL Calcium 9.6 (8.4-10.2) mg/dL Total Bilirubin 0.3 (0.2-1.3) mg/dL AST 43 H (14-36) U/L ALT 65 H (9-52) U/L Alkaline Phosphatase 83 (38-126) U/L Total Protein 7.0 (6.3-8.2) g/dL Albumin 4.2 (3.5-5.0) g/dL Amylase 108 (30-110) U/L Lipase 207 (23-300) U/L HCG, Qual 12/29/17 Range/Units 05:40 WBC (3.8-10.6) k/uL RBC (3.80-5.40) m/uL Hgb (11.4-16.0) gm/dL Hct (34.0-46.0) % MCV (80.0-100.0) fL MCH (25.0-35.0) pg MCHC (31.0-37.0) g/dL RDW (11.5-15.5) % Plt Count (150-450) k/uL Neutrophils % % Lymphocytes % % Monocytes % % Eosinophils % % Basophils % % Neutrophils # (1.3-7.7) k/uL Lymphocytes # (1.0-4.8) k/uL Monocytes # (0-1.0) k/uL Eosinophils # (0-0.7) k/uL Basophils # (0-0.2) k/uL PT (9.0-12.0) sec INR (<1.2) APTT (22.0-30.0) sec Sodium (137-145) mmol/L Potassium (3.5-5.1) mmol/L Chloride (98-107) mmol/L Carbon Dioxide (22-30) mmol/L Anion Gap mmol/L BUN (7-17) mg/dL Creatinine (0.52-1.04) mg/dL Est GFR (CKD-EPI)AfAm (>60 ml/min/1.73 sqM) Est GFR (CKD-EPI)NonAf (>60 ml/min/1.73 sqM) Glucose (74-99) mg/dL Calcium (8.4-10.2) mg/dL Total Bilirubin (0.2-1.3) mg/dL AST (14-36) U/L ALT (9-52) U/L Alkaline Phosphatase (38-126) U/L Total Protein (6.3-8.2) g/dL Albumin (3.5-5.0) g/dL Amylase (30-110) U/L Lipase (23-300) U/L HCG, Qual Not Detected - Radiology Data Radiology results: image reviewed Disposition Clinical Impression: Nausea & vomiting, Gastrointestinal hemorrhage Disposition: ADMITTED IP TO THIS HOSP Is patient prescribed a controlled substance at d/c from ED?: No Referrals: Chelo Houser MD [Primary Care Provider] - 1-2 days Decision Time: 06:48
[2017-12-29 06:09] LABS: Basophils % (A) 0 %; Eosinophils # (A) 0.1 k/uL (0-0.7); Eosinophils % (A) 1 %; HCT 33.5 % (34.0-46.0); HGB 11.6 gm/dL (11.4-16.0); Lymphocytes # (A) 2.2 k/uL (1.0-4.8); Lymphocytes % (A) 32 %; MCH 31.5 pg (25.0-35.0); MCHC 34.5 g/dL (31.0-37.0); MCV 91.4 fL (80.0-100.0); Monocytes # (A) 0.2 k/uL (0-1.0); Monocytes % (A) 2 %; Neutrophils # (A) 4.5 k/uL (1.3-7.7); Neutrophils % (A) 63 %; Platelet Count 370 k/uL (150-450); RBC 3.67 m/uL (3.80-5.40); RDW 13.6 % (11.5-15.5); WBC 7.1 k/uL (3.8-10.6)
[2017-12-29] MEDS ORDERED: ONDANSETRON 4 MG/2 ML VIAL IVP STA (06:17)
[2017-12-29 06:28] LABS: ALT 65 U/L (9-52); AST 43 U/L (14-36); Albumin 4.2 g/dL (3.5-5.0); Alkaline Phosphatase 83 U/L (38-126); Amylase 108 U/L (30-110); Anion Gap 15 mmol/L; Blood Urea Nitrogen 10 mg/dL (7-17); Calcium 9.6 mg/dL (8.4-10.2); Carbon Dioxide 21 mmol/L (22-30); Chloride 106 mmol/L (98-107); Glucose 113 mg/dL (74-99); Lipase 207 U/L (23-300); Potassium 5.1 mmol/L (3.5-5.1); Sodium 142 mmol/L (137-145); Total Bilirubin 0.3 mg/dL (0.2-1.3)
[2017-12-29 06:32] LABS: INR 1.2 (<1.2); Partial Thromboplastin Time 23.8 sec (22.0-30.0); Prothrombin Time 11.3 sec (9.0-12.0)
[2017-12-29] MEDS ORDERED: MORPHINE SULFATE 4 MG/ML SYRINGE IVP STA (06:45)
[2017-12-29] MEDS ORDERED: NALOXONE 0.4 MG/ML 1 ML VIAL IV PRN (06:48)
[2017-12-29] MEDS ORDERED: ONDANSETRON 4 MG/2 ML VIAL IVP PRN (06:48)
--- NOTE | 2017-12-29 06:49 | XR ---
EXAM: XR Kub CLINICAL HISTORY: abdominal pain COMPARISON: CT 09/24/14 FINDINGS/IMPRESSION: Single upright view of the abdomen. Nonspecific bowel gas pattern. There are some mildly distended small bowel segments. There is still colonic gas and stool to level of the colon. Query ileus. No subdiaphragmatic free air is seen. Cholecystectomy clips.
[2017-12-29 07:55] LABS: Amorphous Sediment,Urine Moderate /hpf; Appearance,Urine Turbid (Clear); Bilirubin,Urine Negative (Negative); Blood,Urine Moderate (Negative); Color,Urine Yellow; Glucose,Urine (UA) Negative (Negative); Ketones,Urine Negative (Negative); Leukocyte Esterase,Urine Small (Negative); Nitrite,Urine Negative (Negative); PH, Urine 8.5 (5.0-8.0); Protein,Urine Trace (Negative); RBC,Urine 12 /hpf (0-5); Specific Gravity,Urine 1.015 (1.001-1.035); Squamous Epithelial Cell,Urine 7 /hpf (0-4); Urobilinogen,Urine <2.0 mg/dL (<2.0); WBC,Urine 3 /hpf (0-5)
[2017-12-29] MEDS ORDERED: PANTOPRAZOLE 40 MG/10 ML VIAL IV SCH (09:00)
--- NOTE | 2017-12-29 09:29 | P.CONS ---
History of Present Illness - Reason for Consult Consult date: 12/29/17 Hematemesis Requesting physician: Darren E Sheet - History of Present Illness 32-year-old female admitted with a 9 day history of nausea vomiting. 2 days ago her emesis became blood tinged. She takes Motrin 800 mg twice daily for fibromyalgia. She was evaluated at [facility] in July 2017 for similar symptoms and underwent an EGD evaluation with findings of mild antral gastritis but no evidence of peptic ulcer disease or esophagitis. Denies fever chills hematochezia or melena. Home medications include PPI therapy daily. No alcohol. Hemoglobin 11.6. White count 7.1. INR 1.2. BUN 10. Creatinine 0.5. KUB nonspecific bowel gas pattern. Review of Systems Constitutional: Denies fever, chills, sweats, weight gain, or loss. HEENT: Negative for migraines, blurred vision or loss, earaches, drainage, tinnitus, oral mucosal lesions, dysphagia, or odynophagia. History of chronic migraines. CARDIAC: Negative for chest pain, arrhythmias, or palpitation. RESPIRATORY: Negative for shortness of breath, hemoptysis, cough, or sputum production. GI: See HPI for pertinent findings. : Negative for hematuria, urgency, frequency, polyuria, or dysuria. GYNc: Denies possibility of . Negative vaginal discharge. MUSCULOSKELETAL: History of fibromyalgia. Negative for muscle aches, swelling, arthritis, and arthralgias. NEUROLOGIC: Negative for stroke or TIA. ENDOCRINE: Negative for thyroid problems. SKIN: Negative for rash or itching. PSYCHIATRIC: History of depression. Past Medical History Past Medical History: Fibromyalgia, Renal Disease Additional Past Medical History / Comment(s): chronic neck pain, migraines, ovarian cyst, osteoprosis,colitis, eating disorder, endometriosis History of Any Multi-Drug Resistant Organisms: None Reported Past Surgical History: Cholecystectomy, Orthopedic Surgery Additional Past Surgical History / Comment(s): d&c, right arm sadie Past Psychological History: Depression, Panic Disorder Smoking Status: Current every day smoker Past Alcohol Use History: Occasional Past Drug Use History: Marijuana Medications and Allergies Home Medications Medication Instructions Recorded Confirmed Type Hydrocodone/Acetaminophen [[place] 1 tab PO Q6H PRN 09/08/16 12/29/17 History 10-325] ALPRAZolam [Xanax] 0.5 mg PO DAILY PRN 12/28/17 12/29/17 History Desvenlafaxine [Pristiq ER] 100 mg PO HS 12/28/17 12/29/17 History Omeprazole [PriLOSEC] 20 mg PO BID 12/28/17 12/29/17 History Pantoprazole Sodium 40 mg PO DAILY 12/28/17 12/29/17 History cloNIDine HCL [Catapres] 0.1 - 0.2 mg PO DAILY PRN 12/28/17 12/29/17 History Ondansetron [Zofran ODT] 8 mg PO TID PRN 12/29/17 12/29/17 History Prochlorperazine [Compazine] 10 mg PO TID PRN 12/29/17 12/29/17 History Allergies Allergy/AdvReac Type Severity Reaction Status Date / Time hyoscyamine sulfate AdvReac Itching Verified 12/29/17 07:26 [From Levsin] latex AdvReac Itching Verified 12/29/17 07:26 Physical Exam Vitals: Vital Signs Temp Pulse Resp BP Pulse Ox 12/29/17 07:39 97.2 F L 77 18 99/55 98 12/29/17 06:39 97.4 F L 83 14 101/57 100 12/29/17 05:24 98.5 F 68 16 136/76 98 12/29/17 05:14 98 F 52 L 17 145/78 98 Intake and Output 12/28/17 12/29/17 12/29/17 22:59 06:59 14:59 Other: Weight 53.07 kg General appearance: The patient is alert, oriented, in no acute distress. HET: Head is normocephalic and atraumatic. Pupils are equal and reactive. Oropharynx is clear without lesions. Neck: Supple without lymphadenopathy. Trachea midline. Heart: S1 S2. Regular rate and rhythm. Lungs: No crackles or wheezes are heard. Abdomen: Soft, nontender, nondistended with bowel sounds. No peritoneal signs. No palpable organomegaly or masses. Extremities: Normal skin color and turgor. No cyanosis, rash, ulceration, clubbing, or edema. Radial and pedal pulses are 2/4 bilaterally. Neurological: No focal deficits. Strength and sensation are grossly intact. Results CBC & Chem 7: 12/29/17 05:40 12/29/17 05:40 Labs: Abnormal Lab Results - Last 24 Hours (Table) 12/29/17 12/29/17 12/29/17 Range/Units 05:40 05:40 05:40 RBC 3.67 L (3.80-5.40) m/uL Hct 33.5 L (34.0-46.0) % INR 1.2 H (<1.2) Carbon Dioxide 21 L (22-30) mmol/L Glucose 113 H (74-99) mg/dL AST 43 H (14-36) U/L ALT 65 H (9-52) U/L Urine Appearance (Clear) Urine pH (5.0-8.0) Urine Protein (Negative) Urine Blood (Negative) Ur Leukocyte Esterase (Negative) Urine RBC (0-5) /hpf Ur Squamous Epith Cells (0-4) /hpf Amorphous Sediment (None) /hpf 12/29/17 Range/Units 07:05 RBC (3.80-5.40) m/uL Hct (34.0-46.0) % INR (<1.2) Carbon Dioxide (22-30) mmol/L Glucose (74-99) mg/dL AST (14-36) U/L ALT (9-52) U/L Urine Appearance Turbid H (Clear) Urine pH 8.5 H (5.0-8.0) Urine Protein Trace H (Negative) Urine Blood Moderate H (Negative) Ur Leukocyte Esterase Small H (Negative) Urine RBC 12 H (0-5) /hpf Ur Squamous Epith Cells 7 H (0-4) /hpf Amorphous Sediment Moderate H (None) /hpf Assessment and Plan (1) Nausea & vomiting Narrative/Plan: 32-year-old female admitted with 9 day history of intractable nausea vomiting without fever chills hematochezia or melena. Development of hematemesis over the last 2 days suspect Sofia-Aguayo secondary to chronic NSAID usage however underlying peptic ulcer disease cannot be entirely excluded; recent EGD July 2017 for evaluation of similar symptoms while on NSAID therapy reported no evidence of peptic ulcer disease. Current Visit: Yes Status: Acute Code(s): R11.2 - NAUSEA WITH VOMITING, UNSPECIFIED SNOMED Code(s): 76076845 (2) Hematemesis Current Visit: Yes Status: Acute Code(s): K92.0 - HEMATEMESIS SNOMED Code( s): 8763365 Plan: 1. Presently resting without abdominal pain. Hemoglobin 11.6. Continue to observe today. No NSAIDs. Protonix 40 mg IV twice a day. Zofran 4 mg's every 6 hours as needed. Clear liquid diet. CBC in a.m. If patient has continuance of hematemesis or precipitous drop in hemoglobin will proceed with EGD evaluation. We'll continue to follow closely with you. Thank you for this kind referral and the opportunity to participate in the care of your patient. This consultation was discussed with Dr. Lei. The impression and plan of care have been directed as dictated.
[2017-12-29] MEDS: PANTOPRAZOLE 40 MG/10 ML VIAL IV SCH (10:26)
--- NOTE | 2017-12-29 11:07 | P.HPIM ---
History of Present Illness 32-year-old female admitted with a 9 day history of nausea vomiting. 2 days ago her emesis became blood tinged. She takes Motrin 800 mg twice daily for fibromyalgia. She was evaluated at [facility] in July 2017 for similar symptoms and underwent an EGD evaluation with findings of mild antral gastritis but no evidence of peptic ulcer disease or esophagitis. Denies fever chills hematochezia or melena. Home medications include PPI therapy daily. No alcohol. Patient also coming of suprapubic pain and dysuria patient's urine sample is a contaminated urine sample will obtain another UA. Patient will be started on Rocephin because of her symptoms. A she and is constipated did not have any bowel movement. Denied any dark stools or hematochezia. Review of Systems REVIEW OF SYSTEMS: CONSTITUTIONAL: No fever, no malaise, no fatigue. HEENT: No recent visual problems or hearing problems. Denied any sore throat. CARDIOVASCULAR: No chest pain, orthopnea, PND, no palpitations, no syncope. PULMONARY: No shortness of breath, no cough, no hemoptysis. GASTROINTESTINAL: Mentioned in HPI. NEUROLOGICAL: No headaches, no weakness, no numbness. HEMATOLOGICAL: Denies any bleeding or petechiae. GENITOURINARY: As mentioned in HPI MUSCULOSKELETAL/RHEUMATOLOGICAL: Denies any joint pain, swelling, or any muscle pain. ENDOCRINE: Denies any polyuria or polydipsia. The rest of the 14-point review of systems is negative. Past Medical History Past Medical History: Fibromyalgia, Renal Disease Additional Past Medical History / Comment(s): chronic neck pain, migraines, ovarian cyst, osteoprosis,colitis, eating disorder, endometriosis History of Any Multi-Drug Resistant Organisms: None Reported Past Surgical History: Cholecystectomy, Orthopedic Surgery Additional Past Surgical History / Comment(s): d&c, right arm sadie Past Psychological History: Depression, Panic Disorder Smoking Status: Current every day smoker Past Alcohol Use History: Occasional Past Drug Use History: Marijuana Medications and Allergies Home Medications Medication Instructions Recorded Confirmed Type Hydrocodone/Acetaminophen [[place] 1 tab PO Q6H PRN 09/08/16 12/29/17 History 10-325] ALPRAZolam [Xanax] 0.5 mg PO DAILY PRN 12/28/17 12/29/17 History Desvenlafaxine [Pristiq ER] 100 mg PO HS 12/28/17 12/29/17 History Omeprazole [PriLOSEC] 20 mg PO BID 12/28/17 12/29/17 History Pantoprazole Sodium 40 mg PO DAILY 12/28/17 12/29/17 History cloNIDine HCL [Catapres] 0.1 - 0.2 mg PO DAILY PRN 12/28/17 12/29/17 History Ondansetron [Zofran ODT] 8 mg PO TID PRN 12/29/17 12/29/17 History Prochlorperazine [Compazine] 10 mg PO TID PRN 12/29/17 12/29/17 History Allergies Allergy/AdvReac Type Severity Reaction Status Date / Time hyoscyamine sulfate AdvReac Itching Verified 12/29/17 07:26 [From Levsin] latex AdvReac Itching Verified 12/29/17 07:26 Physical Exam Vitals: Vital Signs Temp Pulse Resp BP Pulse Ox 12/29/17 10:00 18 12/29/17 07:39 97.2 F L 77 18 99/55 98 12/29/17 06:39 97.4 F L 83 14 101/57 100 12/29/17 05:24 98.5 F 68 16 136/76 98 12/29/17 05:14 98 F 52 L 17 145/78 98 Intake and Output 12/28/17 12/29/17 12/29/17 22:59 06:59 14:59 Other: Weight 53.07 kg PHYSICAL EXAMINATION: GENERAL: The patient is alert and oriented x3, not in any acute distress. Well developed, well nourished. HEENT: Pupils are round and equally reacting to light. EOMI. No scleral icterus. No conjunctival pallor. Normocephalic, atraumatic. No pharyngeal erythema. No thyromegaly. CARDIOVASCULAR: S1 and S2 present. No murmurs, rubs, or gallops. PULMONARY: Chest is clear to auscultation, no wheezing or crackles. ABDOMEN: Soft, mild epigastric and suprapubic tenderness MUSCULOSKELETAL: No joint swelling or deformity. EXTREMITIES: No cyanosis, clubbing, or pedal edema. NEUROLOGICAL: Gross neurological examination did not reveal any focal deficits. SKIN: No rashes. Results CBC & Chem 7: 12/29/17 05:40 12/29/17 05:40 Labs: Abnormal Lab Results - Last 24 Hours (Table) 12/29/17 12/29/17 12/29/17 Range/Units 05:40 05:40 05:40 RBC 3.67 L (3.80-5.40) m/uL Hct 33.5 L (34.0-46.0) % INR 1.2 H (<1.2) Carbon Dioxide 21 L (22-30) mmol/L Glucose 113 H (74-99) mg/dL AST 43 H (14-36) U/L ALT 65 H (9-52) U/L Urine Appearance (Clear) Urine pH (5.0-8.0) Urine Protein (Negative) Urine Blood (Negative) Ur Leukocyte Esterase (Negative) Urine RBC (0-5) /hpf Ur Squamous Epith Cells (0-4) /hpf Amorphous Sediment (None) /hpf 12/29/17 Range/Units 07:05 RBC (3.80-5.40) m/uL Hct (34.0-46.0) % INR (<1.2) Carbon Dioxide (22-30) mmol/L Glucose (74-99) mg/dL AST (14-36) U/L ALT (9-52) U/L Urine Appearance Turbid H (Clear) Urine pH 8.5 H (5.0-8.0) Urine Protein Trace H (Negative) Urine Blood Moderate H (Negative) Ur Leukocyte Esterase Small H (Negative) Urine RBC 12 H (0-5) /hpf Ur Squamous Epith Cells 7 H (0-4) /hpf Amorphous Sediment Moderate H (None) /hpf Assessment and Plan Plan: -Abdominal pain nausea vomiting: Secondary to possible gastritis esophagitis, patient is on Protonix which will be continued patient was started on diet advance as tolerated patient patient's previous EGD showed gastritis. IV fluids will be continued -Possibly of urinary tract infection because it saline contaminated urine sample I'll obtain a UA and urine culture again -Anxiety disorder because the low blood pressure [employer] [place] discontinued, history of migraines
[2017-12-29 11:57] LABS: Appearance,Urine Clear (Clear); Bilirubin,Urine Negative (Negative); Blood,Urine Small (Negative); Color,Urine Light Yellow; Glucose,Urine (UA) Negative (Negative); Ketones,Urine Negative (Negative); Leukocyte Esterase,Urine Negative (Negative); Mucus,Urine Rare /hpf; Nitrite,Urine Negative (Negative); Protein,Urine Negative (Negative); Specific Gravity,Urine 1.011 (1.001-1.035); Urobilinogen,Urine <2.0 mg/dL (<2.0); WBC,Urine 2 /hpf (0-5)
[2017-12-29] MEDS: ONDANSETRON 4 MG/2 ML VIAL IVP PRN ×2 (12:50→23:02)
[2017-12-29] MEDS: HYDROcodone/APAP 10-325MG 1 EACH TAB PO PRN ×2 (12:51→20:00)
[2017-12-29] MEDS: SODIUM CHLORIDE 0.9% 1,000 ML IV SCH ×2 (12:55→15:49)
[2017-12-29] MEDS: cefTRIAXone IN SWFI 1,000 MG/10 ML SYRINGE IVP SCH (14:39)
[2017-12-29 15:11] LABS: Basophils % (A) 0 %; Eosinophils # (A) 0.1 k/uL (0-0.7); Eosinophils % (A) 2 %; HCT 33.3 % (34.0-46.0); HGB 10.5 gm/dL (11.4-16.0); Lymphocytes # (A) 2.9 k/uL (1.0-4.8); Lymphocytes % (A) 43 %; MCH 30.1 pg (25.0-35.0); MCHC 31.6 g/dL (31.0-37.0); MCV 95.4 fL (80.0-100.0); Mean Platelet Volume 7.4; Monocytes # (A) 0.4 k/uL (0-1.0); Monocytes % (A) 5 %; Neutrophils # (A) 3.2 k/uL (1.3-7.7); Neutrophils % (A) 48 %; Platelet Count 323 k/uL (150-450); RBC 3.49 m/uL (3.80-5.40); RDW 13.5 % (11.5-15.5); WBC 6.8 k/uL (3.8-10.6)
[2017-12-29] MEDS: ALPRAZolam 0.25 MG TAB PO SCH (20:00)
[2017-12-29] MEDS ORDERED: DESVENLAFAXINE SUCCINATE 50 MG TAB.ER.24H PO SCH (21:00)
[2017-12-30 00:09] LABS: Glucose,Whole Blood 150 mg/dL (75-99)
[2017-12-30] MEDS ORDERED: SODIUM CHLORIDE 0.9% 500 ML IV ONE (00:17)
[2017-12-30] MEDS ORDERED: SODIUM CHLORIDE 0.9% 1,000 ML IV ONE (00:41)
[2017-12-30 00:52] LABS: Anion Gap 12 mmol/L; Blood Urea Nitrogen 3 mg/dL (7-17); Calcium 8.1 mg/dL (8.4-10.2); Carbon Dioxide 23 mmol/L (22-30); Chloride 109 mmol/L (98-107); Glucose 114 mg/dL (74-99); Potassium 4.4 mmol/L (3.5-5.1); Sodium 144 mmol/L (137-145)
[2017-12-30 01:09] LABS: Basophils % (A) 1 %; Eosinophils # (A) 0.1 k/uL (0-0.7); Eosinophils % (A) 3 %; HCT 28.3 % (34.0-46.0); Lymphocytes # (A) 3.4 k/uL (1.0-4.8); Lymphocytes % (A) 64 %; MCH 30.4 pg (25.0-35.0); MCHC 31.4 g/dL (31.0-37.0); MCV 96.9 fL (80.0-100.0); Mean Platelet Volume 7.1; Monocytes # (A) 0.2 k/uL (0-1.0); Monocytes % (A) 3 %; Neutrophils # (A) 1.4 k/uL (1.3-7.7); Neutrophils % (A) 26 %; Platelet Count 290 k/uL (150-450); RBC 2.92 m/uL (3.80-5.40); RDW 13.4 % (11.5-15.5); WBC 5.3 k/uL (3.8-10.6)
[2017-12-30 01:12] LABS: HGB 8.9 gm/dL (11.4-16.0)
[2017-12-30 01:54] LABS: Anisocytosis (M) Present
[2017-12-30 01:55] LABS: Poikilocytosis (M) Present
[2017-12-30] MEDS: SODIUM CHLORIDE 0.9% 1,000 ML IV SCH ×4 (02:24→16:22)
[2017-12-30 02:53] LABS: Glucose,Whole Blood 96 mg/dL (75-99)
[2017-12-30 05:26] LABS: Basophils % (A) 0 %; Eosinophils # (A) 0.1 k/uL (0-0.7); Eosinophils % (A) 2 %; HCT 27.2 % (34.0-46.0); HGB 8.7 gm/dL (11.4-16.0); Lymphocytes # (A) 2.4 k/uL (1.0-4.8); Lymphocytes % (A) 65 %; MCH 30.8 pg (25.0-35.0); MCHC 31.7 g/dL (31.0-37.0); MCV 96.9 fL (80.0-100.0); Mean Platelet Volume 6.9; Monocytes # (A) 0.1 k/uL (0-1.0); Monocytes % (A) 3 %; Neutrophils % (A) 27 %; Platelet Count 263 k/uL (150-450); RBC 2.81 m/uL (3.80-5.40); RDW 13.5 % (11.5-15.5); WBC 3.7 k/uL (3.8-10.6)
[2017-12-30] MEDS: PANTOPRAZOLE 40 MG/10 ML VIAL IV SCH (08:11)
[2017-12-30] MEDS: ALPRAZolam 0.25 MG TAB PO SCH (08:39)
[2017-12-30] MEDS: cefTRIAXone IN SWFI 1,000 MG/10 ML SYRINGE IVP SCH (08:39)
[2017-12-30] MEDS: ONDANSETRON 4 MG/2 ML VIAL IVP PRN (08:45)
--- NOTE | 2017-12-30 10:21 | P.PN ---
Subjective Progress Note Date: 12/30/17 Principal diagnosis: Hematemesis No further episodes of hematemesis since early a.m. yesterday. Patient in ICU secondary to selective overflow. Denies abdominal pain. Afebrile. Nursing reports episodes of low blood pressure yesterday systolic 70-92. Hemoglobin 8.7 this morning down from 11.6 yesterday. Denies hematochezia or melena. Objective - Vital Signs Vital signs: Vital Signs Temp 98.0 F 12/30/17 08:00 Pulse 54 L 12/30/17 08:00 Resp 22 12/30/17 08:00 BP 80/58 12/30/17 08:00 Pulse Ox 100 12/30/17 08:00 Intake & Output 12/29/17 12/30/17 12/30/17 18:59 06:59 18:59 Intake Total 600 300 Output Total 400 Balance 600 -100 Weight 62.2 kg Intake: IV 600 300 Sodium Chloride 0.9% 1, 600 300 000 ml @ 150 mls/hr IV . Q6H40M [facility] Rx#:[id number] Output: Urine 400 Other: Voiding Method Bedside Commode # Voids 3 - Exam General appearance: The patient is alert, oriented, in no acute distress. HET: Head is normocephalic and atraumatic. Pupils are equal and reactive. Oropharynx is clear without lesions. Neck: Supple without lymphadenopathy. Trachea midline. Heart: S1 S2. Regular rate and rhythm. Lungs: No crackles or wheezes are heard. Abdomen: Soft, nontender, nondistended with bowel sounds. No peritoneal signs. No palpable organomegaly or masses. Extremities: Normal skin color and turgor. No cyanosis, rash, ulceration, clubbing, or edema. Radial and pedal pulses are 2/4 bilaterally. Neurological: No focal deficits. Strength and sensation are grossly intact. - Labs CBC & Chem 7: 12/30/17 03:44 12/30/17 00:19 Labs: Abnormal Lab Results - Last 24 Hours (Table) 12/29/17 12/29/17 12/30/17 Range/Units 11:20 14:27 00:06 WBC (3.8-10.6) k/uL RBC 3.49 L (3.80-5.40) m/uL Hgb 10.5 L (11.4-16.0) gm/dL Hct 33.3 L (34.0-46.0) % Neutrophils # (1.3-7.7) k/uL Chloride (98-107) mmol/L BUN (7-17) mg/dL Creatinine (0.52-1.04) mg/dL Glucose (74-99) mg/dL POC Glucose (mg/dL) 150 H (75-99) mg/dL Calcium (8.4-10.2) mg/dL Urine Blood Small H (Negative) Urine Mucus Rare H (None) /hpf 12/30/17 12/30/17 12/30/17 Range/Units 00:19 00:19 03:44 WBC 3.7 L (3.8-10.6) k/uL RBC 2.92 L 2.81 L (3.80-5.40) m/uL Hgb 8.9 L D 8.7 L (11.4-16.0) gm/dL Hct 28.3 L 27.2 L (34.0-46.0) % Neutrophils # 1.0 L (1.3-7.7) k/uL Chloride 109 H (98-107) mmol/L BUN 3 L (7-17) mg/dL Creatinine 0.50 L (0.52-1.04) mg/dL Glucose 114 H (74-99) mg/dL POC Glucose (mg/dL) (75-99) mg/dL Calcium 8.1 L (8.4-10.2) mg/dL Urine Blood (Negative) Urine Mucus (None) /hpf Microbiology - Last 24 Hours (Table) 12/29/17 11:20 Urine Culture - Preliminary Urine,Clean Catch Assessment and Plan (1) Hematemesis Narrative/Plan: 32-year-old female admitted with 9 day history of intractable nausea vomiting without fever chills hematochezia or melena. Development of hematemesis over the last 2 days suspect Sofia-Aguayo secondary to chronic NSAID usage however underlying peptic ulcer disease cannot be entirely excluded; recent EGD July 2017 for evaluation of similar symptoms while on NSAID therapy reported no evidence of peptic ulcer disease. Current Visit: Yes Status: Acute Code(s): K92.0 - HEMATEMESIS SNOMED Code( s): 4816515 (2) Nausea & vomiting Current Visit: Yes Status: Acute Code(s): R11.2 - NAUSEA WITH VOMITING, UNSPECIFIED SNOMED Code(s): 32812574 (3) Hypotension Current Visit: Yes Status: Acute Code(s): I95.9 - HYPOTENSION, UNSPECIFIED SNOMED Code(s): 02871264 (4) Acute blood loss anemia Narrative/Plan: Symptomatic anemia hypotension, decreased hemoglobin secondary to acute blood loss anemia Current Visit: Yes Status: Acute Code(s): D62 - ACUTE POSTHEMORRHAGIC ANEMIA SNOMED Code(s): 672352594 (5) GI bleed Current Visit: Yes Status: Acute Code(s): K92.2 - GASTROINTESTINAL HEMORRHAGE, UNSPECIFIED SNOMED Code(s): 68015502 Plan: 1. No further episodes of hematemesis however patient has documented episodes of hypotension and decreased hemoglobin 8.7 today therefore will proceed with EGD evaluation to rule out peptic ulcer disease. Continue with nothing by mouth status. Protonix 40 mg IV twice a day. CBC monitoring. The attorney lawyer has discussed the risks, benefits and alternative therapies for the above-mentioned procedure and for both sedation/analgesia as well as necessary blood product administration, if indicated, as they pertain to this patient. The patient has indicated understanding and acceptance of the risks and procedures discussed. Assessment and plan a care discussed with Dr. Stroud
[2017-12-30 12:56] LABS: Basophils % (A) 0 %; Eosinophils # (A) 0.1 k/uL (0-0.7); Eosinophils % (A) 2 %; HCT 28.8 % (34.0-46.0); HGB 9.1 gm/dL (11.4-16.0); Lymphocytes # (A) 2.2 k/uL (1.0-4.8); Lymphocytes % (A) 44 %; MCHC 31.8 g/dL (31.0-37.0); MCV 94.4 fL (80.0-100.0); Mean Platelet Volume 7.4; Monocytes # (A) 0.3 k/uL (0-1.0); Monocytes % (A) 5 %; Neutrophils # (A) 2.3 k/uL (1.3-7.7); Neutrophils % (A) 46 %; Platelet Count 289 k/uL (150-450); RBC 3.05 m/uL (3.80-5.40); RDW 13.5 % (11.5-15.5)
[2017-12-30] MEDS ORDERED: GLYCOPYRROLATE 0.2 MG/ML 2 ML VIAL ONE (13:00)
[2017-12-30] MEDS ORDERED: PROPOFOL 10 MG/ML 20 ML VIAL IV ONE (13:00)
[2017-12-30] MEDS ORDERED: LIDOCAINE 1% INJ 10MG/ML (20 ML MDV) ONE (13:00)
[2017-12-30] MEDS ORDERED: IV FLUID CONTINUATION 1,000 ML IV ONE (13:01)
--- NOTE | 2017-12-30 13:16 | P.PCN ---
Date of Procedure: 12/30/17 Procedure(s) Performed: BRIEF HISTORY: Patient is a 32-year-old, pleasant, white female, scheduled for an upper endoscopy as part of evaluation of epigastric pain associated with nausea vomiting for the last 3 days' duration. She had several episodes of dark red emesis and drop in hemoglobin from 11-9 g/dL. She is hence scheduled for an upper endoscopy to evaluate further. She does similar episode in July 2017 and had an upper endoscopy done which revealed mild gastritis.. PROCEDURE PERFORMED: Esophagogastroduodenoscopy with biopsy. PREOPERATIVE DIAGNOSIS: Acute upper GI bleed. IV sedation per anesthesia. PROCEDURE: After informed consent was obtained, the patient was brought into the endoscopy unit. IV sedation was administered by Anesthesia under continuous monitoring. Initially the Olympus GIF-140 video endoscope was inserted into the mouth. Esophagus intubated without any difficulty. It was gradually advanced into the stomach and duodenum and carefully examined. The bulb and the second part of the duodenum appeared normal. The scope at this time was withdrawn to the stomach, adequately insufflated with air, and upon careful examination, mucosa of the antrum, had mild gastritis and biopsies were done from this area. The body, cardia and the fundus appeared normal. On retroflexion in the cardia of the stomach there was a very superficial Sofia-Aguayo tear identified with no active bleeding. The scope was then withdrawn into the esophagus. The GE junction was located at 39 cm from the incisors. The esophagus appeared normal. There were no erosions or ulcerations seen and the patient tolerated the procedure well. IMPRESSION: 1. Superficial Sofia-Aguayo tear with no active bleeding at the cardia of the stomach. 2. Mild antral gastritis but no evidence of esophagitis or peptic ulcer disease RECOMMENDATIONS: The findings of this examination were discussed with the patient . she was advised to follow with the biopsy results in the meantime she will continue with Protonix and diet will be advanced as tolerated.
[2017-12-30 15:31] VITALS: BP 112/57; PULSE 42; RESP 19; TEMP 98.5
--- NOTE | 2017-12-30 18:49 | P.DS ---
Providers Date of admission: 12/29/17 06:48 Attending physician: Darren Khalil MD Consults: 12/29/17 06:48 Consult Physician Urgent Consulting Provider: Sammy Lei Consult Reason/Comments: upper gi hemorrhage Do you want consulting provider notified?: Yes Primary care physician: Chelo Corrina [facility] Course: Patient was admitted secondary to hematemesis found to have small Sofia demetra tear superficial, with the mild gastritis. Patient is anuric anymore upper or lower GI bleed patient is clinically doing well will be discharged today patient is bradycardic mildly hypotensive both of which improved. Patient has sinus bradycardia patient was receiving clonidine at home. Patient is otherwise clinically doing well will be discharged today. Patient will be discharged on proton pump inhibitor PHYSICAL EXAMINATION: GENERAL: The patient is alert and oriented x3, not in any acute distress. Well developed, well nourished. HEENT: Pupils are round and equally reacting to light. EOMI. No scleral icterus. No conjunctival pallor. Normocephalic, atraumatic. No pharyngeal erythema. No thyromegaly. CARDIOVASCULAR: S1 and S2 present. No murmurs, rubs, or gallops. PULMONARY: Chest is clear to auscultation, no wheezing or crackles. ABDOMEN: Soft, nontender, nondistended, normoactive bowel sounds. No palpable organomegaly. MUSCULOSKELETAL: No joint swelling or deformity. EXTREMITIES: No cyanosis, clubbing, or pedal edema. NEUROLOGICAL: Gross neurological examination did not reveal any focal deficits. SKIN: No rashes. -Abdominal pain nausea vomiting: Secondary to gastritis and esophageal tear as mentioned above -Contaminated urine sample his symptoms of dysuria, repeat urine sample is negative. UTI will not require any antibiotics -Anxiety disorder history of migraines Plan - Discharge Summary Discharge Rx Participant: No New Discharge Prescriptions: New Omeprazole [PriLOSEC] 20 mg PO AC-BID #30 cap Discontinued Omeprazole [PriLOSEC] 20 mg PO BID cloNIDine HCL [Catapres] 0.1 - 0.2 mg PO DAILY PRN PRN Reason: Anxiety Pantoprazole Sodium 40 mg PO DAILY No Action Hydrocodone/Acetaminophen [[place] 10-325] 1 tab PO Q6H PRN PRN Reason: Pain ALPRAZolam [Xanax] 0.5 mg PO DAILY PRN PRN Reason: Anxiety Desvenlafaxine [Pristiq ER] 100 mg PO HS Ondansetron [Zofran ODT] 8 mg PO TID PRN PRN Reason: Nausea Prochlorperazine [Compazine] 10 mg PO TID PRN PRN Reason: Nausea Discharge Medication List Hydrocodone/Acetaminophen [[place] 10-325] 1 tab PO Q6H PRN 09/08/16 [History] ALPRAZolam [Xanax] 0.5 mg PO DAILY PRN 12/28/17 [History] Desvenlafaxine [Pristiq ER] 100 mg PO HS 12/28/17 [History] Ondansetron [Zofran ODT] 8 mg PO TID PRN 12/29/17 [History] Prochlorperazine [Compazine] 10 mg PO TID PRN 12/29/17 [History] Omeprazole [PriLOSEC] 20 mg PO AC-BID #30 cap 12/30/17 [Rx] Follow up Appointment(s)/Referral(s): Chelo Houser MD [Primary Care Provider] - 3 Days (office hours are currently closed, discussed with patient the importance of her calling to schedule her own follow up appointment at [phone].) Patient Instructions/Handouts: Gastritis (GEN), Gastrointestinal Bleeding (GEN) , Hypotension (GEN), Anemia (GEN) Discharge Disposition: HOME SELF-CARE
== END 2017-12-30 17:46 | disposition home or self-care (01) | DRG 369 ==
LOC: EC 05:08 → INTOOBSV 06:48 → 5MS5E 06:48 → OBSVTOIN 06:48 → 5MS5E 16:33 → 6ICU 12-30 03:37
PROVIDERS: ADMIT Internal Medicine; ATTEND Internal Medicine
PROC: 0DB78ZX Excision of Stomach, Pylorus, Via Natural or Artificial Opening Endoscopic, Diagnostic (ICD-10-PCS; principal; 2017-12-30 07:30)
DX: K22.6 Gastro-esophageal laceration-hemorrhage syndrome (principal); D62 Acute posthemorrhagic anemia; F32.9 Major depressive disorder, single episode, unspecified; F41.0 Panic disorder [episodic paroxysmal anxiety]; K29.60 Other gastritis without bleeding; K59.00 Constipation, unspecified; M79.7 Fibromyalgia; G43.909 Migraine, unspecified, not intractable, without status migrainosus; G89.29 Other chronic pain; N83.209 Unspecified ovarian cyst, unspecified side; I95.9 Hypotension, unspecified; M54.2 Cervicalgia; R00.1 Bradycardia, unspecified; R30.0 Dysuria; K21.9 Gastro-esophageal reflux disease without esophagitis; F17.200 Nicotine dependence, unspecified, uncomplicated; M81.0 Age-related osteoporosis without current pathological fracture; Z79.899 Other long term (current) drug therapy; Z79.1 Long term (current) use of non-steroidal anti-inflammatories (NSAID); Z88.8 Allergy status to other drugs, medicaments and biological substances; Z91.040 Latex allergy status; Z90.49 Acquired absence of other specified parts of digestive tract; Z71.6 Tobacco abuse counseling
CPT/HCPCS: 36415; 43239; 74018; 80048; 80053; 81001; 81025; 82150; 83690; 84703; 85025; 85610; 85730; 87086; 88305; 94760; 96361; 96374; 96375; 96376; 99285

== ENCOUNTER → 2018-06-01 | Outpatient (CLI) | payer OTHER ==
--- NOTE | 2018-06-01 14:14 | US ---
EXAMINATION TYPE: US kidneys/renal and bladder DATE OF EXAM: 06/01/2018 COMPARISON: 08/2017 CLINICAL HISTORY: R10.9 Unspecified abdominal pain. Hematuria 2 weeks ago EXAM MEASUREMENTS: Right Kidney: 10.6 x 4.4 x 3.9 cm Left Kidney: 10.4 x 4.7 x 4.5 cm Post Void Residual Volume: 4.2 mL Right Kidney: small cyst or prominent renal pelvis 1.5 x 1.2 x 1.0 cm Left Kidney: small cyst 1.1 x 0.8 x 0.6 cm Bladder: wnl Bilateral Jets seen: Yes Normal Post Void Residual: Yes IMPRESSION: 1. There may be a small cyst at the inferior pole left kidney. This could be monitored with ultrasoun d. 2. There is likely a prominent renal pelvis on the right without obvious hydronephrosis.
== END | disposition home or self-care (01) ==
LOC: RADUSWWP 12:58
PROVIDERS: ATTEND Family Medicine
DX: R10.9 Unspecified abdominal pain (principal); M54.12 Radiculopathy, cervical region
CPT/HCPCS: 76770

== ENCOUNTER → 2018-06-13 | Outpatient (CLI) | payer OTHER ==
--- NOTE | 2018-06-13 15:35 | MR ---
EXAMINATION TYPE: MR cervical spine wo con DATE OF EXAM: 06/13/2018 COMPARISON: None HISTORY: Cervical radiculopathy TECHNIQUE: Multiplanar, multisequence images of the cervical spine were acquired. FINDINGS: The cervical spine vertebral bodies maintain normal vertebral body height. There is a rever shukri of the usual cervical lordosis. Multilevel disc desiccation is seen. Visualized portions of the p osterior fossa are unremarkable. No prevertebral soft tissue swelling. Paraspinal muscles are within normal limits. Spinal cord signal is within normal limits. C2-C3: There is a broad-based disc bulge and disc desiccation without spinal canal stenosis nor neura l foraminal narrowing. C3-C4: There is slight uncovertebral hypertrophy on the left and a broad-based disc bulge. Although t here is mild narrowing of the ventral subarachnoid space there is no significant spinal canal stenosi s nor neural foraminal narrowing. C4-C5: There is a broad-based disc bulge minimally narrowing the ventral subarachnoid space although there is no significant spinal canal stenosis or neural foraminal narrowing. C5-C6: There is a broad-based disc bulge narrowing the ventral subarachnoid space creating minimal sp inal canal stenosis as this nearly abuts the spinal cord. No significant neural foraminal narrowing. C6-C7: Ligamentum flavum buckling on the left is seen. Disc desiccation is present. No neural foramin al narrowing or spinal canal stenosis. C7-T1: Disc desiccation without spinal canal stenosis nor neural foraminal narrowing. IMPRESSION: 1. No focal disc herniation. 2. Multilevel broad-based disc bulges and disc desiccation most pronounced at C5-C6 creating minimal spinal canal stenosis at this level. 3. Reversal usual cervical lordosis that may relate to muscular sprain or spasm.
== END | disposition home or self-care (01) ==
LOC: RADMRIMAIN 11:50
PROVIDERS: ATTEND Family Medicine
DX: M48.02 Spinal stenosis, cervical region (principal); M50.222 Other cervical disc displacement at C5-C6 level; M53.82 Other specified dorsopathies, cervical region
CPT/HCPCS: 72141

== ENCOUNTER → 2018-12-19 | Outpatient (CLI) | payer OTHER ==
--- NOTE | 2018-12-19 13:56 | MR ---
EXAMINATION TYPE: MR lumbar spine wo con DATE OF EXAM: 12/19/2018 12:55 PM COMPARISON: NONE HISTORY: Numbness/Burning in legs Multiplanar, MultiSpin echo imaging of the lumbar spine was performed. L1-L2: Normal disc appearance without desiccation. No herniation, protrusion or disc bulging. No ca nal stenosis is present. Foramina are patent bilaterally. L2-L3: Normal disc appearance without desiccation. No herniation, protrusion or disc bulging. No ca nal stenosis is present. Foramina are patent bilaterally. L3-L4: Normal disc appearance without desiccation. No herniation, protrusion or disc bulging. No ca nal stenosis is present. Foramina are patent bilaterally. L4-L5: Normal disc appearance without desiccation. No herniation, protrusion or disc bulging. No ca nal stenosis is present. Foramina are patent bilaterally. L5-S1: Normal disc appearance without desiccation. No herniation, protrusion or disc bulging. No ca nal stenosis is present. Foramina are patent bilaterally. Lumbar segments are intact. No paraspinal masses are identified. Conus medullaris has a normal appe arance. Mild curvature convex to the left. IMPRESSION: 1. No evidence for disc desiccation, disc herniation or stenosis.
== END | disposition home or self-care (01) ==
LOC: RADMRIMAIN 12:24
PROVIDERS: ATTEND Family Medicine
DX: M51.26 Other intervertebral disc displacement, lumbar region (principal); R20.2 Paresthesia of skin
CPT/HCPCS: 72148